=== PATIENT | female | born 1970 | race Caucasian/White ===

== ENCOUNTER → 2023-03-31 | Outpatient (CLI) | payer OTHER ==
[~2023-03-31] MED LIST: ACTOS15 M1 PO; AMINOPHYLLIN200 MG PO; ASPIRIN81 MG PO; ATARAX,VISTARIL50 MG PO; CELECOXIB200 M1 PO; CRESTOR5 M1 PO; CYCLOBENZAPRINE10 MG PO; CYMBALTA60 MG PO; FARXIGA5 M1 PO; FEROSUL325 MG PO; GABAPENTIN800 MG PO; GLIMEPIRIDE4 M1 PO; HUMALOG100 UNIT/2 SQ; JANUVIA100 MG PO; LEVOTHYROXINE50 MCG PO; LOPRESSOR25 MG PO; MAGNESIUM400 M1 PO; MIRAPEX1 MG PO; MUCINEX ER600 MG PO; NEUPRO1 EAC3 TD; OXYBUTYNIN CHLO10 MG PO; OZEMPIC1 MG/0.75 SQ; PANTOPRAZOLE SO40 MG PO; POTASSIUM CHLO10 ME5 PO; PREDNISONE10 MG PO; RESTORIL15 MG PO; RYBELSUS14 MG PO; VENLAFAXINE HYD75 M1 PO; VITAMIN D35000 UNIT PO; ZITHROMAX250 MG PO
== END | disposition home or self-care (01) ==
LOC: CARD 01:10
PROVIDERS: ATTEND Internal Medicine Cardiovascular Disease
DX: I25.9 Chronic ischemic heart disease, unspecified (principal); E11.9 Type 2 diabetes mellitus without complications; R79.81 Abnormal blood-gas level; R94.31 Abnormal electrocardiogram [ECG] [EKG]